=== PATIENT | female | born 1985 | race Caucasian/White ===

== ENCOUNTER 2024-03-01 10:16 | Emergency (ER) | payer BC ==
[2024-03-01] MEDS ORDERED: Lorazepam 1 MG TAB ONE (11:17)
[2024-03-01 11:28] LABS: Dilantin 5.9 ug/mL (10.0-20.0)
== END 2024-03-01 11:38 | disposition home or self-care (01) ==
LOC: ERS 10:16
DX: R56.9 Unspecified convulsions (principal); Z87.891 Personal history of nicotine dependence
CPT/HCPCS: 36415; 36416; 80185; 93005; 99284

== ENCOUNTER 2024-03-02 09:36 | Emergency (ER) | payer BC ==
[2024-03-02] MEDS ORDERED: levETIRAcetam 500 MG (5 mL) VIAL ONE (10:04)
== END 2024-03-02 10:53 | disposition home or self-care (01) ==
LOC: ERS 09:36
DX: G40.909 Epilepsy, unspecified, not intractable, without status epilepticus (principal); R29.700 NIHSS score 0; Z87.891 Personal history of nicotine dependence
CPT/HCPCS: 96365; J1953